=== PATIENT | male | born 1950 | race Caucasian/White ===

== ENCOUNTER 2017-06-12 12:56 | Emergency (ER) | payer MEDICARE, OTHER ==
[2017-06-12] MEDS ORDERED: LORazepam 2 MG/ML MDV IVPUSH ONE (13:24)
[2017-06-12] MEDS ORDERED: Aspirin 81 MG Tab.Chew PO ONE (13:25)
[2017-06-12] MEDS ORDERED: Sodium Chloride 0.9% 10 ML Syringe FLUSH PRN (13:25)
[2017-06-12] MEDS ORDERED: LORazepam 1 MG Tab ONE ×2 (14:00→14:10)
[2017-06-12] MEDS ORDERED: Aluminum Hydroxide/Magnesium Hydroxide/Simethicone Susp 30 ML Cup ONE (14:16)
[2017-06-12] MEDS ORDERED: Aluminum Hydroxide/Magnesium Hydroxide/Simethicone Susp 30 ML Cup PO ONE (14:18)
--- NOTE | 2017-06-12 15:47 | EDM.PDOC ---
ED HPI GENERAL MEDICAL PROBLEM - General Chief Complaint: Chest Pain Stated Complaint: CHEST PAIN Time Seen by Provider: 06/12/17 13:00 Source of Information: Reports: Patient History Limitations: Reports: No Limitations - History of Present Illness Onset: Sudden Duration: Hour(s): Location: Reports: Chest Quality: Reports: Ache Severity: Moderate Improves with: Reports: None Worsens with: Reports: None Associated Symptoms: Reports: Shortness of Breath Treatments [employer]: Reports: Aspirin Chest Pain Score (Numeric/FACES): 1 - Related Data Allergies Allergy/AdvReac Type Severity Reaction Status Date / Time No Known Allergies Allergy Verified 06/12/17 12:59 Home Meds: Home Meds Aspirin [Estela Chewable] 81 mg PO DAILY 06/12/17 [History] Losartan [Cozaar] 100 mg PO DAILY 06/12/17 [History] Omeprazole Magnesium [Prilosec Otc] 20 mg PO ACBREAKFAST 06/12/17 [History] Past Medical History HEENT History: Reports: Cataract Cardiovascular History: Reports: Hypertension Respiratory History: Reports: Asthma Gastrointestinal History: Reports: Colon Polyp, GERD Psychiatric History: Reports: Anxiety Oncologic (Cancer) History: Reports: Basal Cell Carcinoma, Lymphoma - Past Surgical History HEENT Surgical History: Reports: Cataract Surgery, Tonsillectomy, Other (See Below) Other HEENT Surgeries/Procedures: Rigth ear surgery Respiratory Surgical History: Reports: Lung Biopsies, Other (See Below) Other Respiratory Surgeries/Procedures: nodule to lung GI Surgical History: Reports: Colonoscopy, Other (See Below) Other GI Surgeries/Procedures: umbilical hernia Musculoskeletal Surgical History: Reports: Shoulder Surgery Social & Family History - Recreational Drug Use Recreational Drug Use: No ED ROS GENERAL - Review of Systems Review Of Systems: See Below Constitutional: Reports: No Symptoms HEENT: Reports: No Symptoms Respiratory: Reports: Shortness of Breath Cardiovascular: Reports: Chest Pain Endocrine: Reports: No Symptoms GI/Abdominal: Reports: No Symptoms : Reports: No Symptoms Musculoskeletal: Reports: No Symptoms Skin: Reports: No Symptoms Neurological: Reports: No Symptoms Psychiatric: Reports: Anxiety Hematologic/Lymphatic: Reports: No Symptoms Immunologic: Reports: No Symptoms ED EXAM, GENERAL - Physical Exam Exam: See Below Exam Limited By: No Limitations General Appearance: Alert, WD/WN, No Apparent Distress Eye Exam: Bilateral Eye: EOMI Ears: Normal External Exam Nose: Normal Inspection Throat/Mouth: Normal Inspection, Normal Oropharynx, Normal Voice, No Airway Compromise Head: Atraumatic, Normocephalic Neck: Normal Inspection, Supple, Non-Tender Respiratory/Chest: No Respiratory Distress, Lungs Clear, Normal Breath Sounds Cardiovascular: Normal Peripheral Pulses, Regular Rate, Rhythm, No Edema Extremities: Normal Inspection, Normal Range of Motion, Non-Tender, No Pedal Edema Neurological: Alert, Oriented, Normal Cognition, Normal Gait, Normal Reflexes, No Motor/Sensory Deficits Psychiatric: Normal Affect, Normal Mood Skin Exam: Warm, Dry, Intact Course - Vital Signs Last Recorded V/S: Last Vital Signs Temp 36.4 C 06/12/17 12:56 Pulse 91 06/12/17 13:17 Resp 18 06/12/17 13:17 BP 148/82 H 06/12/17 13:17 Pulse Ox 96 06/12/17 13:17 - Orders/Labs/Meds Orders: Active Orders 24 hr Category Date Time Status EKG Documentation Completion [RC] ASDIRECTED Care 06/12/17 13:24 Ordered Peripheral IV Insertion Adult [OM.PC] Routine Oth 06/12/17 13:25 Ordered Labs: Laboratory Tests 06/12/17 06/12/17 Range/Units 13:15 13:15 WBC 9.1 (4.0-11.0) K/uL RBC 4.56 (4.50-6.50) M/uL Hgb 13.0 (13.0-18.0) g/dL Hct 37.6 L (40.0-54.0) % MCV 83 (76-96) fL MCH 28.5 (27.0-32.0) pg MCHC 34.6 (31.0-35.0) g/dL RDW 13.3 (11.0-16.0) % Plt Count 293 (150-400) K/uL MPV 9.3 (6.0-10.0) fL Neut % (Auto) 79.6 H (45.0-70.0) % Lymph % (Auto) 12.3 L (20.0-40.0) % [place] % (Auto) 7.2 (3.0-10.0) % Eos % (Auto) 0.5 L (1.0-5.0) % Baso % (Auto) 0.4 (0.0-0.5) % Neut # (Auto) 7.24 (2.00-7.50) K/uL Lymph # (Auto) 1.12 L (1.50-4.00) K/uL [place] # (Auto) 0.66 (0.20-0.80) K/uL Eos # (Auto) 0.05 (0.04-0.40) K/uL Baso # (Auto) 0.04 (0.02-0.10) K/uL Sodium 138 (136-145) mmol/L Potassium 3.6 (3.5-5.1) mmol/L Chloride 103 (98-107) mmol/L Carbon Dioxide 24.0 (21.0-32.0) mmol/L Anion Gap 14.6 (5.0-15.0) mmol/L BUN 14 (8-26) mg/dL Creatinine 1.08 (0.70-1.30) mg/dL Est Cr Clr Drug Dosing TNP Estimated GFR (MDRD) > 60 (>60) MLS/MIN BUN/Creatinine Ratio 13.0 (6-25) Glucose 103 H (74-100) mg/dL Calcium 8.7 (8.5-10.1) mg/dL Troponin I 0.003 (0.000-0.060) ng/mL Meds: Medications Discontinued Medications Generic Name Dose Route Start Last Admin Trade Name Simonq PRN Reason Stop Dose Admin Al Hydroxide/Mg Hydroxide Confirm 06/12/17 14:16 06/12/17 14:22 Mag-Al Plus Administered 06/12/17 14:17 Not Given Dose 30 ml .ROUTE .STK-MED ONE Al Hydroxide/Mg Hydroxide 30 ml 06/12/17 14:18 06/12/17 14:18 Mag-Al Plus PO 06/12/17 14:19 30 ml ONETIME ONE Administration Aspirin 243 mg 06/12/17 13:25 06/12/17 12:56 Aspirin PO 06/12/17 13:26 243 mg ONETIME ONE Administration Lorazepam 1 mg 06/12/17 13:24 06/12/17 13:22 Ativan IVPUSH 06/12/17 13:25 1 mg ONETIME ONE Administration Lorazepam Confirm 06/12/17 14:10 06/12/17 14:22 Ativan Administered 06/12/17 14:11 Not Given Dose 6 mg .ROUTE .STK-MED ONE Sodium Chloride 10 ml 06/12/17 13:25 Saline Flush FLUSH ASDIRECTED PRN Keep Vein Open Departure - Departure Time of Disposition: 15:00 Disposition: Home, Self-Care 01 Condition: Good Clinical Impression: Anxiety about health Gastroesophageal reflux disease Qualifiers: Esophagitis presence: esophagitis presence not specified Qualified Code(s): K21.9 - Gastro-esophageal reflux disease without esophagitis Instructions: Nonspecific Chest Pain, [id number], Panic Attacks, Lorazepam tablets Referrals: PCP,None [Primary Care Provider] - Forms: ED Department Discharge Additional Instructions: May take Ativan 1mg orally twice a day as needed for anxiety. Come back to be seen in you develop worsening symptoms of chest pain, shortness of breath, or Nausea/Vomiting. Keep your appointment with your primary care provider. Discussed close monitoring of symptoms throughout the day prior to re-departure to [place] for recheck as needed. Patient to return at any time for any return of chest pain without resolution with supportive measures and medications. Discussed monitoring and f/u and use of maalox and ativan. Discussed recheck labs if symptoms return. Patient agrees with plan of care and f/u as directed. - My Orders Last 24 Hours: My Active Orders 06/12/17 13:24 EKG Documentation Completion [RC] ASDIRECTED 06/12/17 13:25 Peripheral IV Insertion Adult [OM.PC] Routine - Assessment/Plan Last 24 Hours: My Active Orders 06/12/17 13:24 EKG Documentation Completion [RC] ASDIRECTED 06/12/17 13:25 Peripheral IV Insertion Adult [OM.PC] Routine
== END 2017-06-12 14:36 | disposition home or self-care (01) ==
LOC: LB.ED 12:56
DX: K21.9 Gastro-esophageal reflux disease without esophagitis (principal); F41.9 Anxiety disorder, unspecified; I10 Essential (primary) hypertension; J45.909 Unspecified asthma, uncomplicated; Z79.82 Long term (current) use of aspirin; Z90.89 Acquired absence of other organs
CPT/HCPCS: 36415; 80048; 84484; 85025; 93005; 96374; 99283; 99285; A9270; J2060